=== PATIENT | female | born 1985 | race Caucasian/White ===

== ENCOUNTER 2019-05-21 12:56 | Emergency (ER) | payer MEDICARE, OTHER ==
[2019-05-21 13:25] VITALS: TEMP 98.7
[2019-05-21 14:36] LABS: Basophils # (A) 0.1 k/uL (0-0.2); Basophils % (A) 1 %; Eosinophils % (A) 0 %; HCT 45.1 % (34.0-46.0); HGB 16.3 gm/dL (11.4-16.0); Lymphocytes # (A) 1.3 k/uL (1.0-4.8); Lymphocytes % (A) 9 %; MCH 33.9 pg (25.0-35.0); MCHC 36.1 g/dL (31.0-37.0); MCV 93.9 fL (80.0-100.0); Mean Platelet Volume 8.7; Monocytes # (A) 0.6 k/uL (0-1.0); Monocytes % (A) 4 %; Neutrophils # (A) 12.1 k/uL (1.3-7.7); Neutrophils % (A) 84 %; Platelet Count 289 k/uL (150-450); RDW 13.5 % (11.5-15.5); WBC 14.3 k/uL (3.8-10.6)
[2019-05-21 14:38] LABS: ALT 30 U/L (4-34); AST 46 U/L (14-36); African American GFR (CKD) >90 (>60 ml/min/1.73 sqM); Albumin 4.6 g/dL (3.5-5.0); Alkaline Phosphatase 46 U/L (38-126); Anion Gap 14 mmol/L; Blood Urea Nitrogen 10 mg/dL (7-17); Calcium 9.3 mg/dL (8.4-10.2); Carbon Dioxide 19 mmol/L (22-30); Chloride 104 mmol/L (98-107); Glucose 107 mg/dL (74-99); Non-African American GFR(CKD) >90 (>60 ml/min/1.73 sqM); Sodium 137 mmol/L (137-145); Total Bilirubin 1.4 mg/dL (0.2-1.3)
[2019-05-21 14:41] LABS: Amorphous Sediment,Urine Rare /hpf; Appearance,Urine Turbid (Clear); Bilirubin,Urine Negative (Negative); Blood,Urine Large (Negative); Color,Urine Light Orange; Glucose,Urine (UA) Negative (Negative); Ketones,Urine Negative (Negative); Leukocyte Esterase,Urine Large (Negative); Mucus,Urine Many /hpf; Nitrite,Urine Negative (Negative); PH, Urine 5.5 (5.0-8.0); Protein,Urine 1+ (Negative); RBC,Urine 142 /hpf (0-5); Specific Gravity,Urine 1.026 (1.001-1.035); Squamous Epithelial Cell,Urine 27 /hpf (0-4); Urobilinogen,Urine <2.0 mg/dL (<2.0); WBC,Urine 162 /hpf (0-5)
[2019-05-21 14:43] LABS: Potassium 4.4 mmol/L (3.5-5.1)
--- NOTE | 2019-05-21 15:27 | ED ---
Seizure HPI - General Chief Complaint: Seizure Stated Complaint: seizure Source: patient Mode of arrival: ambulatory Limitations: no limitations - History of Present Illness Initial Comments: The patient is a 33-year-old female past history of porphria and seizure disorder who presents to emergency room and after she had a seizure at home. Mother states that she was in the other room when she heard an abnormal sound. She went into the patient's room to find her in bed unresponsive. She was having full tonic-clonic shaking. She also had gurgling coming from her mouth. EMS. Seizure lasted approximately 4 minutes. The patient was postictal upon EMS arrival. She did bite her tongue. EMS evaluated the patient he stated that they could transfer the patient or the patient's mother can bring her in. Mother opted to bring her by private vehicle. Mother states that she did have a previous history of seizure disorder. She hasn't had a seizure in over 22 years. She is not currently on any seizure medication. 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 She is currently on gabapentin. Taking her medications as directed. Does admit to some sleep deprivation. No blunt head trauma. No unilateral numbness or weakness. Denies headaches or visual changes. No confusion or slurred speech from the patient. There are no other alleviating, precipitating or modifying factors - Related Data Previous Rx's Medication Instructions Recorded Cephalexin [Keflex] 500 mg PO Q12HR #14 cap 05/21/19 Allergies Allergy/AdvReac Type Severity Reaction Status Date / Time No Known Allergies Allergy Verified 05/21/19 13:27 Review of Systems ROS Statement: Those systems with pertinent positive or pertinent negative responses have been documented in the HPI. ROS Other: All systems not noted in ROS Statement are negative. Past Medical History Past Medical History: Seizure Disorder Additional Past Medical History / Comment(s): porphyria History of Any Multi-Drug Resistant Organisms: None Reported Past Surgical History: No Surgical Hx Reported Past Psychological History: No Psychological Hx Reported Smoking Status: Current every day smoker Past Alcohol Use History: None Reported Past Drug Use History: None Reported General Exam Limitations: no limitations General appearance: alert, in no apparent distress Head exam: Present: atraumatic, normocephalic, normal inspection Eye exam: Present: normal appearance, PERRL, EOMI. Absent: scleral icterus, conjunctival injection, periorbital swelling ENT exam: Present: normal exam, mucous membranes moist Neck exam: Present: normal inspection. Absent: tenderness, meningismus, lymphadenopathy Respiratory exam: Present: normal lung sounds bilaterally. Absent: respiratory distress, wheezes, rales, rhonchi, stridor Cardiovascular Exam: Present: regular rate, normal rhythm, normal heart sounds. Absent: systolic murmur, diastolic murmur, rubs, gallop, clicks GI/Abdominal exam: Present: soft, normal bowel sounds. Absent: distended, te nderness, guarding, rebound, rigid Extremities exam: Present: normal inspection, full ROM, normal capillary refill. Absent: tenderness, pedal edema, joint swelling, calf tenderness Back exam: Present: normal inspection Neurological exam: Present: alert, oriented X3, CN II-XII intact Psychiatric exam: Present: normal affect, normal mood Skin exam: Present: warm, dry, intact, normal color. Absent: rash Course Vital Signs 05/21/19 05/21/19 13:20 16:20 Temperature 98.7 F Pulse Rate 107 H 76 Respiratory 18 16 Rate Blood Pressure 115/74 123/73 O2 Sat by Pulse 96 99 Oximetry Medical Decision Making - Medical Decision Making Upon arrival the patient was placed into room 15. A thorough history and physical exam was performed. 12-lead EKG was performed. I did recommend laboratory studies and a urinalysis. As patient does have a history of seizure disorder we will hold off on CT of the patient's brain. Laboratory studies demonstrated white blood cell count 14.3. Urinalysis shows large blood, large leukocyte esterase, 142 red blood cells, 162 white blood cells, 27 squamous epithelial cells and no bacteria. I discussed the results with the patient and her mother. Her urine was purulent by visualization. Even though was not a clean catch I did recommend treating the patient. Patient was given a dose of Keflex which is safe with porphyria. I also sent a prescription to the pharmacy. Urine will be sent for culture. She needs to follow up with Dr. Yañez regarding her breakthrough seizure. I did recommend that she start seeing a neurologist again. If there are any new or worsening symptoms the patient should be brought back to the emergency room. The mother and patient were in agreement with the treatment plan the patient was discharged home in stable condition - Lab Data Result diagrams: 05/21/19 14:05 05/21/19 14:05 Lab Results 05/21/19 05/21/19 05/21/19 Range/Units 14: 14: 14:20 WBC 14.3 H (3.8-10.6) k/uL RBC 4.80 (3.80-5.40) m/uL Hgb 16.3 H (11.4-16.0) gm/dL Hct 45.1 (34.0-46.0) % MCV 93.9 (80.0-100.0) fL MCH 33.9 (25.0-35.0) pg MCHC 36.1 (31.0-37.0) g/dL RDW 13.5 (11.5-15.5) % Plt Count 289 (150-450) k/uL Neutrophils % 84 % Lymphocytes % 9 % Monocytes % 4 % Eosinophils % 0 % Basophils % 1 % Neutrophils # 12.1 H (1.3-7.7) k/uL Lymphocytes # 1.3 (1.0-4.8) k/uL Monocytes # 0.6 (0-1.0) k/uL Eosinophils # 0.0 (0-0.7) k/uL Basophils # 0.1 (0-0.2) k/uL Sodium 137 (137-145) mmol/L Potassium 4.4 (3.5-5.1) mmol/L Chloride 104 (98-107) mmol/L Carbon Dioxide 19 L (22-30) mmol/L Anion Gap 14 mmol/L BUN 10 (7-17) mg/dL Creatinine 0.63 (0.52-1.04) mg/dL Est GFR (CKD-EPI)AfAm >90 (>60 ml/min/1.73 sqM) Est GFR (CKD-EPI)NonAf >90 (>60 ml/min/1.73 sqM) Glucose 107 H (74-99) mg/dL Calcium 9.3 (8.4-10.2) mg/dL Total Bilirubin 1.4 H (0.2-1.3) mg/dL AST 46 H (14-36) U/L ALT 30 (4-34) U/L Alkaline Phosphatase 46 (38-126) U/L Total Protein 8.0 (6.3-8.2) g/dL Albumin 4.6 (3.5-5.0) g/dL Urine Color Light [place] Urine Appearance Turbid H (Clear) Urine pH 5.5 (5.0-8.0) Ur Specific [place] 1.026 (1.001-1.035) Urine Protein 1+ H (Negative) Urine Glucose (UA) Negative (Negative) Urine Ketones Negative (Negative) Urine Blood Large H (Negative) Urine Nitrite Negative (Negative) Urine Bilirubin Negative (Negative) Urine Urobilinogen <2.0 (<2.0) mg/dL Ur Leukocyte Esterase Large H (Negative) Urine RBC 142 H (0-5) /hpf Urine WBC 162 H (0-5) /hpf Ur Squamous Epith Cells 27 H (0-4) /hpf Amorphous Sediment Rare H (None) /hpf Urine Mucus Many H (None) /hpf Urine HCG, Qual (Not Detectd) 05/21/19 Range/Units 14:20 WBC (3.8-10.6) k/uL RBC (3.80-5.40) m/uL Hgb (11.4-16.0) gm/dL Hct (34.0-46.0) % MCV (80.0-100.0) fL MCH (25.0-35.0) pg MCHC (31.0-37.0) g/dL RDW (11.5-15.5) % Plt Count (150-450) k/uL Neutrophils % % Lymphocytes % % Monocytes % % Eosinophils % % Basophils % % Neutrophils # (1.3-7.7) k/uL Lymphocytes # (1.0-4.8) k/uL Monocytes # (0-1.0) k/uL Eosinophils # (0-0.7) k/uL Basophils # (0-0.2) k/uL Sodium (137-145) mmol/L Potassium (3.5-5.1) mmol/L Chloride (98-107) mmol/L Carbon Dioxide (22-30) mmol/L Anion Gap mmol/L BUN (7-17) mg/dL Creatinine (0.52-1.04) mg/dL Est GFR (CKD-EPI)AfAm (>60 ml/min/1.73 sqM) Est GFR (CKD-EPI)NonAf (>60 ml/min/1.73 sqM) Glucose (74-99) mg/dL Calcium (8.4-10.2) mg/dL Total Bilirubin (0.2-1.3) mg/dL AST (14-36) U/L ALT (4-34) U/L Alkaline Phosphatase (38-126) U/L Total Protein (6.3-8.2) g/dL Albumin (3.5-5.0) g/dL Urine Color Urine Appearance (Clear) Urine pH (5.0-8.0) Ur Specific [place] (1.001-1.035) Urine Protein (Negative) Urine Glucose (UA) (Negative) Urine Ketones (Negative) Urine Blood (Negative) Urine Nitrite (Negative) Urine Bilirubin (Negative) Urine Urobilinogen (<2.0) mg/dL Ur Leukocyte Esterase (Negative) Urine RBC (0-5) /hpf Urine WBC (0-5) /hpf Ur Squamous Epith Cells (0-4) /hpf Amorphous Sediment (None) /hpf Urine Mucus (None) /hpf Urine HCG, Qual Not Detected (Not Detectd) - EKG Data EKG Comments: EKG demonstrates normal sinus rhythm with a ventricular rate of 87. RI interval 146. QRS V2. QTC of 44. No acute ST segment elevations or depressions concerning for ischemic changes Disposition Clinical Impression: Recurrent seizures, Acute UTI Disposition: HOME SELF-CARE Condition: Stable Instructions (If sedation given, give patient instructions): Recurrent Seizures in Adults (ED) Additional Instructions: Please follow-up with your primary care doctor in 2 to 4 days. Return to the emergency for any new or worsening symptoms Prescriptions: Cephalexin [Keflex] 500 mg PO Q12HR #14 cap Is patient prescribed a controlled substance at d/c from ED?: No Referrals: Vinod Terrell DO [Primary Care Provider] - 1-2 days Time of Disposition: 16:16
[2019-05-21] MEDS ORDERED: CEPHALEXIN 500 MG CAP PO STA (16:08)
[2019-05-21 16:22] VITALS: BP 123/73; PULSE 76; RESP 16
== END 2019-05-21 16:20 | disposition home or self-care (01) ==
LOC: EC 12:56
DX: G40.909 Epilepsy, unspecified, not intractable, without status epilepticus (principal); N39.0 Urinary tract infection, site not specified; E80.20 Unspecified porphyria; F17.200 Nicotine dependence, unspecified, uncomplicated; Z79.899 Other long term (current) drug therapy; Z72.820 Sleep deprivation
CPT/HCPCS: 36415; 80053; 81001; 81025; 85025; 87086; 93005; 99284

== ENCOUNTER → 2019-06-15 | Outpatient (CLI) | payer MEDICARE, OTHER ==
--- NOTE | 2019-06-15 21:24 | MR ---
EXAMINATION TYPE: MR brain wo con DATE OF EXAM: 06/15/2019 COMPARISON: None HISTORY: Seizure CONTRAST: Performed utilizing 0 mL intravenous Gadavist gadolinium contrast. TECHNIQUE: Multiplanar, multiecho imaging on a 3.0 Dasha magnet is performed through the brain. Stud y is performed within 24 hours of arrival to the hospital. The craniovertebral junction is normal. The pituitary is normal. Diffusion-weighted imaging is performed. No abnormal hyperintensity is present to suggest an acute i ntracranial infarct or acute ischemic change. Signal through the brain is normal. The temporal lobes are symmetrical. Normal vascular flow voids ar e present. Ventricles and sulci are appropriate for the patient age. IMPRESSIONS: 1. Normal noncontrast CT brain
== END | disposition home or self-care (01) ==
LOC: RADMRIMAIN 14:48
PROVIDERS: ATTEND Family Medicine
DX: G40.909 Epilepsy, unspecified, not intractable, without status epilepticus (principal)
CPT/HCPCS: 70551